=== PATIENT | female | born 1985 | race Caucasian/White ===

== ENCOUNTER 2020-06-24 11:08 | Observation (INO) | payer OTHER ==
[2020-06-24] MEDS ORDERED: SODIUM CHLORIDE 0.9% 1,000 ML IV STA (11:30)
--- NOTE | 2020-06-24 11:53 | ED ---
Alcohol HPI - General Chief Complaint: Alcohol Stated Complaint: DRUNK Time Seen by Provider: 06/24/20 11:17 Source: patient, RN notes reviewed Mode of arrival: wheelchair Limitations: no limitations - History of Present Illness Initial Comments: This a 34-year-old female presents emergency Department chief complaint of alcohol intoxication, alcohol abuse. Patient states she was attempted to go to rehab at [place] today and she was turned away secondary to her breath alcohol level. Patient states she drank heavily this morning. 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 Patient has history of hep C. Patient states she drinks daily. Denies being suicidal or homicidal she does admit that she fell several days ago and was left-sided rib pain no abdominal pain no other complaints. - Related Data Allergies Allergy/AdvReac Type Severity Reaction Status Date / Time No Known Allergies Allergy Verified 06/24/20 11:15 Review of Systems ROS Statement: Those systems with pertinent positive or pertinent negative responses have been documented in the HPI. ROS Other: All systems not noted in ROS Statement are negative. Past Medical History Additional Past Medical History / Comment(s): Hep C Smoking Status: Current some day smoker Past Alcohol Use History: Abuse, Daily Past Drug Use History: Marijuana General Exam Limitations: no limitations General appearance: alert, in no apparent distress Head exam: Present: atraumatic, normocephalic, normal inspection Eye exam: Present: normal appearance, PERRL, EOMI. Absent: scleral icterus, conjunctival injection, periorbital swelling ENT exam: Present: normal exam, normal oropharynx, mucous membranes moist Neck exam: Present: normal inspection, full ROM. Absent: tenderness, meningismus, lymphadenopathy Respiratory exam: Present: normal lung sounds bilaterally, chest wall tenderness (Mild left-sided rib tenderness with ecchymotic areas). Absent: respiratory distress, wheezes, rales, rhonchi, stridor Cardiovascular Exam: Present: regular rate, normal rhythm, normal heart sounds. Absent: systolic murmur, diastolic murmur, rubs, gallop, clicks GI/Abdominal exam: Present: soft, normal bowel sounds. Absent: distended, tenderness, guarding, rebound, rigid Neurological exam: Present: alert, oriented X3, CN II-XII intact Skin exam: Present: warm, dry, intact, normal color. Absent: rash Course Vital Signs 06/24/20 11:11 Temperature 98.0 F Pulse Rate 105 H Respiratory 18 Rate Blood Pressure 163/83 O2 Sat by Pulse 98 Oximetry Medical Decision Making - Medical Decision Making Patient's blood alcohol level is 399. Patient will be admitted for acute alcohol intoxication, alcohol abuse concern for alcohol withdrawal - Lab Data Result diagrams: 06/24/20 11:39 06/24/20 11:39 Lab Results 06/24/20 06/24/20 06/24/20 Range/Units 11:39 11:39 11:39 WBC 5.6 (3.8-10.6) k/uL RBC 4.12 (3.80-5.40) m/uL Hgb 13.0 (11.4-16.0) gm/dL Hct 40.1 (34.0-46.0) % MCV 97.1 (80.0-100.0) fL MCH 31.6 (25.0-35.0) pg MCHC 32.5 (31.0-37.0) g/dL RDW 12.7 (11.5-15.5) % Plt Count 198 (150-450) k/uL MPV 6.5 Neutrophils % 52 % Lymphocytes % 38 % Monocytes % 6 % Eosinophils % 1 % Basophils % 1 % Neutrophils # 2.9 (1.3-7.7) k/uL Lymphocytes # 2.1 (1.0-4.8) k/uL Monocytes # 0.4 (0-1.0) k/uL Eosinophils # 0.0 (0-0.7) k/uL Basophils # 0.1 (0-0.2) k/uL PT 9.6 (9.0-12.0) sec INR 0.9 (<1.2) Sodium (137-145) mmol/L Potassium (3.5-5.1) mmol/L Chloride (98-107) mmol/L Carbon Dioxide (22-30) mmol/L Anion Gap mmol/L BUN (7-17) mg/dL Creatinine (0.52-1.04) mg/dL Est GFR (CKD-EPI)AfAm (>60 ml/min/1.73 sqM) Est GFR (CKD-EPI)NonAf (>60 ml/min/1.73 sqM) Glucose (74-99) mg/dL Calcium (8.4-10.2) mg/dL Magnesium (1.6-2.3) mg/dL Total Bilirubin (0.2-1.3) mg/dL AST (14-36) U/L ALT (4-34) U/L Alkaline Phosphatase (38-126) U/L Total Protein (6.3-8.2) g/dL Albumin (3.5-5.0) g/dL Lipase (23-300) U/L Urine Color Light Yellow Urine Appearance Clear (Clear) Urine pH 6.0 (5.0-8.0) Ur Specific Cody 1.007 (1.001-1.035) Urine Protein Negative (Negative) Urine Glucose (UA) Negative (Negative) Urine Ketones Negative (Negative) Urine Blood Negative (Negative) Urine Nitrite Negative (Negative) Urine Bilirubin Negative (Negative) Urine Urobilinogen <2.0 (<2.0) mg/dL Ur Leukocyte Esterase Negative (Negative) Serum Alcohol mg/dL 06/24/20 Range/Units 11:39 WBC (3.8-10.6) k/uL RBC (3.80-5.40) m/uL Hgb (11.4-16.0) gm/dL Hct (34.0-46.0) % MCV (80.0-100.0) fL MCH (25.0-35.0) pg MCHC (31.0-37.0) g/dL RDW (11.5-15.5) % Plt Count (150-450) k/uL MPV Neutrophils % % Lymphocytes % % Monocytes % % Eosinophils % % Basophils % % Neutrophils # (1.3-7.7) k/uL Lymphocytes # (1.0-4.8) k/uL Monocytes # (0-1.0) k/uL Eosinophils # (0-0.7) k/uL Basophils # (0-0.2) k/uL PT (9.0-12.0) sec INR (<1.2) Sodium 145 (137-145) mmol/L Potassium 4.0 (3.5-5.1) mmol/L Chloride 111 H (98-107) mmol/L Carbon Dioxide 21 L (22-30) mmol/L Anion Gap 13 mmol/L BUN 9 (7-17) mg/dL Creatinine 0.61 (0.52-1.04) mg/dL Est GFR (CKD-EPI)AfAm >90 (>60 ml/min/1.73 sqM) Est GFR (CKD-EPI)NonAf >90 (>60 ml/min/1.73 sqM) Glucose 114 H (74-99) mg/dL Calcium 8.9 (8.4-10.2) mg/dL Magnesium 2.3 (1.6-2.3) mg/dL Total Bilirubin 0.4 (0.2-1.3) mg/dL AST 133 H (14-36) U/L ALT 182 H (4-34) U/L Alkaline Phosphatase 80 (38-126) U/L Total Protein 7.9 (6.3-8.2) g/dL Albumin 4.5 (3.5-5.0) g/dL Lipase 367 H (23-300) U/L Urine Color Urine Appearance (Clear) Urine pH (5.0-8.0) Ur Specific Cody (1.001-1.035) Urine Protein (Negative) Urine Glucose (UA) (Negative) Urine Ketones (Negative) Urine Blood (Negative) Urine Nitrite (Negative) Urine Bilirubin (Negative) Urine Urobilinogen (<2.0) mg/dL Ur Leukocyte Esterase (Negative) Serum Alcohol 399 H* mg/dL Disposition Clinical Impression: Alcoholic intoxication, Alcohol abuse, Alcohol withdrawal syndrome Disposition: ADMITTED IP TO THIS [facility] Condition: Fair Referrals: Nonstaff,Physician [REFERRING] - 1-2 days
[2020-06-24 12:09] LABS: Basophils # (A) 0.1 k/uL (0-0.2); Basophils % (A) 1 %; Eosinophils % (A) 1 %; HCT 40.1 % (34.0-46.0); Lymphocytes # (A) 2.1 k/uL (1.0-4.8); Lymphocytes % (A) 38 %; MCH 31.6 pg (25.0-35.0); MCHC 32.5 g/dL (31.0-37.0); MCV 97.1 fL (80.0-100.0); Mean Platelet Volume 6.5; Monocytes # (A) 0.4 k/uL (0-1.0); Monocytes % (A) 6 %; Neutrophils # (A) 2.9 k/uL (1.3-7.7); Neutrophils % (A) 52 %; Platelet Count 198 k/uL (150-450); RBC 4.12 m/uL (3.80-5.40); RDW 12.7 % (11.5-15.5); WBC 5.6 k/uL (3.8-10.6)
[2020-06-24 12:10] LABS: Appearance,Urine Clear (Clear); Bilirubin,Urine Negative (Negative); Blood,Urine Negative (Negative); Color,Urine Light Yellow; Glucose,Urine (UA) Negative (Negative); Ketones,Urine Negative (Negative); Leukocyte Esterase,Urine Negative (Negative); Nitrite,Urine Negative (Negative); Protein,Urine Negative (Negative); Specific Gravity,Urine 1.007 (1.001-1.035); Urobilinogen,Urine <2.0 mg/dL (<2.0)
[2020-06-24 12:13] LABS: INR 0.9 (<1.2); Prothrombin Time 9.6 sec (9.0-12.0)
[2020-06-24 12:50] LABS: ALT 182 U/L (4-34); AST 133 U/L (14-36); African American GFR (CKD) >90 (>60 ml/min/1.73 sqM); Albumin 4.5 g/dL (3.5-5.0); Alkaline Phosphatase 80 U/L (38-126); Anion Gap 13 mmol/L; Blood Urea Nitrogen 9 mg/dL (7-17); Calcium 8.9 mg/dL (8.4-10.2); Carbon Dioxide 21 mmol/L (22-30); Chloride 111 mmol/L (98-107); Glucose 114 mg/dL (74-99); Lipase 367 U/L (23-300); Magnesium 2.3 mg/dL (1.6-2.3); Non-African American GFR(CKD) >90 (>60 ml/min/1.73 sqM); Sodium 145 mmol/L (137-145); Total Bilirubin 0.4 mg/dL (0.2-1.3); Total Protein 7.9 g/dL (6.3-8.2)
--- NOTE | 2020-06-24 12:59 | XR ---
PA chest and left RIBS. HISTORY: Pain following trauma. COMPARISON: Technique: PA view the chest and 4 views left ribs were obtained. FINDINGS: CHEST: The lungs are clear. There is no pleural effusion or pneumothorax. The heart and pulmonary vasculatur e, mediastinum and hilum are normal. The osseous structures are intact. Left RIBS: There is no fracture or focal intraosseous abnormality. IMPRESSION: No significant abnormality of the chest or left ribs.
[2020-06-24 13:02] LABS: Alcohol 399 mg/dL
[2020-06-24] MEDS ORDERED: NALOXONE 0.4 MG/ML 1 ML VIAL IV PRN (13:19)
[2020-06-24] MEDS ORDERED: ONDANSETRON 4 MG/2 ML VIAL IVP PRN (13:19)
[2020-06-24] MEDS ORDERED: LORazepam 2 MG/ML INJ IV PRN ×2 (13:19)
[2020-06-24] MEDS: PANTOPRAZOLE 40 MG/10 ML VIAL IV SCH (13:44)
[2020-06-24] MEDS: LORazepam 2 MG/ML INJ IV PRN (13:44)
[2020-06-24] MEDS ORDERED: SODIUM CHLORIDE 0.9% 1,000 ML with MVI, ADULT NO.4 WITH VIT K 10 ML, THIAMINE 100 MG, F... IV ONE ×4 (14:00)
[2020-06-24] MEDS ORDERED: DEXTROSE 5%-0.45% NACL 2,000 ML IV ONE (14:02)
--- NOTE | 2020-06-24 14:10 | P.HPIM ---
History of Present Illness H&P Date: 06/24/20 Chief Complaint: Alcohol intoxication This is a 34-year-old female with past medical history of heavy alcohol abuser presented to the ER with alcohol intoxication. Patient said that she has been drinking alcohol for very long time and usually drinks approximately 1/5 of vod ka daily. She said that this morning she decided to go to [facility] for rehab but they refused to admit her as her blood alcohol level was very high. She presented to the emergency room. In the ER, blood alcohol level was 399. Patient denies any abdominal pain. She does not have any other complaints or concerns. She reports feeling depressed about her overall condition but denies any suicidal or homicidal thoughts. She denies any underlying psych history. Review of Systems Review of system: 14 points review of systems were obtained and were negative except to what were mentioned in the HPI. Past Medical History Additional Past Medical History / Comment(s): Hep C Smoking Status: Current some day smoker Past Alcohol Use History: Abuse, Daily Past Drug Use History: Marijuana Medications and Allergies Allergies Allergy/AdvReac Type Severity Reaction Status Date / Time No Known Allergies Allergy Verified 06/24/20 11:15 Physical Exam Vitals: Vital Signs Temp Pulse Resp BP Pulse Ox 06/24/20 11:11 98.0 F 105 H 18 163/83 98 Intake and Output 06/23/20 06/24/20 06/24/20 22:59 06:59 14:59 Other: Weight 55.792 kg General: The patient is awake and alert, in no distress Eye: there is normal conjunctiva bilaterally. Neck: The neck is supple, there is no JVD. Cardiovascular: Normal S1-S2, no S3-S4, no murmurs. Respiratory: Lungs clear to auscultation bilaterally Gastrointestinal: Abdomen is soft, nontender Musculoskeletal: There is no pedal edema. Neurological:. Speech is normal. Skin: Skin is warm and dry . Patient appears to have evidence of plaque psoriasis rash involving both arms and legs Results CBC & Chem 7: 06/24/20 11:39 06/24/20 11:39 Labs: Abnormal Lab Results - Last 24 Hours (Table) 06/24/20 Range/Units 11:39 Chloride 111 H (98-107) mmol/L Carbon Dioxide 21 L (22-30) mmol/L Glucose 114 H (74-99) mg/dL AST 133 H (14-36) U/L ALT 182 H (4-34) U/L Lipase 367 H (23-300) U/L Serum Alcohol 399 H* mg/dL Assessment and Plan Assessment: 1. Alcohol intoxication, we'll continue aggressive IV fluid hydration with D5/half-normal saline at 130 mL per hour. Ativan per [facility] protocol as needed. Multivitamins. 2. Alcohol abuse: Counseled extensively to quit. Patient verbalized understanding. She is willing to go to [facility] upon discharge. 3. Mild transaminitis, alcohol induced 4. Plaque psoriasis, I would order hydrocortisone cream twice daily. Patient needs follow-up outpatient. 5. Chronic hepatitis C 6. DVT prophylaxis with subcu Lovenox
[2020-06-25] MEDS: LORazepam 2 MG/ML INJ IV PRN ×2 (00:07→06:17)
[2020-06-25] MEDS: THIAMINE 100 MG TAB PO SCH ×3 (06:05→08:11)
[2020-06-25] MEDS: PANTOPRAZOLE 40 MG/10 ML VIAL IV SCH (08:11)
[2020-06-25 08:16] VITALS: RESP 18
[2020-06-25] MEDS ORDERED: ENOXAPARIN 40 MG/0.4 ML SYRINGE SQ SCH (09:00)
--- NOTE | 2020-06-25 11:11 | P.DS ---
Providers Date of admission: 06/24/20 14:38 Expected date of discharge: 06/25/20 Attending physician: Erik Chery MD Primary care physician: Stated None Hospital Course: This is a 34-year-old female with past medical history significant for psoriasis and chronic hepatitis C who presented to the emergency room not feeling well. Patient was drinking excessively and decided to go to [place] for rehab but she was refused secondary to elevated alcohol level. She was evaluated in the ER and alcohol level was 399. She did not have any other complaints. She was placed on observation. She received aggressive IV fluid hydration. Her overall condition remains stable. She did not have any evidence of withdrawal. She denies any suicidal thoughts or ideation. On the morning of my evaluation patient did not have any complaints. She would be discharged in a stable condition. She reported that she is can attempt to go back to [place]. She was counseled extensively regarding alcohol cessation. Patient Condition at Discharge: Stable Plan - Discharge Summary New Discharge Prescriptions: No Action No Known Home Medications Discharge Medication List No Known Home Medications 06/24/20 [History] Follow up Appointment(s)/Referral(s): Nonstaff,Physician [REFERRING] - 1-2 days Discharge Disposition: HOME SELF-CARE
[2020-06-25 11:33] VITALS: BP 163/97; PULSE 102; TEMP 97.9
== END 2020-06-25 13:26 | disposition home or self-care (01) ==
LOC: EC 11:08 → 4SSUR 14:38 → 5NMEDONC 06-25 00:30
PROVIDERS: ADMIT Internal Medicine; ATTEND Internal Medicine
DX: F10.229 Alcohol dependence with intoxication, unspecified (principal); Y90.8 Blood alcohol level of 240 mg/100 ml or more; B18.2 Chronic viral hepatitis C; R74.8 Abnormal levels of other serum enzymes; R07.81 Pleurodynia; W19.XXXA Unspecified fall, initial encounter; Y93.9 Activity, unspecified; Y92.9 Unspecified place or not applicable; L40.0 Psoriasis vulgaris; F17.200 Nicotine dependence, unspecified, uncomplicated; R74.01 Elevation of levels of liver transaminase levels; R74.02 Elevation of levels of lactic acid dehydrogenase [LDH]; Z86.59 Personal history of other mental and behavioral disorders; Z20.822 Contact with and (suspected) exposure to COVID-19
CPT/HCPCS: 96376 ×2; 96361 ×2; 96372; 96375; 96374; 99285; 36415; 80053; 83690; 83735; 85025; 85610; 81003; 87635; 71101; G0378 ×2; G0480; J2060 ×2; J1650; C9113 ×2; 80320